=== PATIENT | male | born 2000 | race Caucasian/White ===

== ENCOUNTER 2024-06-21 22:16 | Emergency (ER) | payer OTHER ==
[~2024-06-21] VITALS: Ht 177.8 cm; Wt 98.0 kg
[2024-06-21 22:39] VITALS: BP 152/101; PULSE 88; RESP 18; TEMP 36.9; O2SAT 99
== END 2024-06-21 23:25 | disposition left against medical advice (07) ==
LOC: ER 22:16
DX: Z53.21 Procedure and treatment not carried out due to patient leaving prior to being seen by health care provider (principal)